=== PATIENT | female | born 1965 | race Caucasian/White ===

== ENCOUNTER 2018-08-26 10:46 | Outpatient (CLI) | payer BC ==
--- NOTE | 2018-08-26 15:25 | ULT ---
BILATERAL BREASTS LIMITED ULTRASOUND: 08/26/2018 HISTORY: Outside mammograms noting a 4 mm oval asymmetry in the right breast with a partially circumscribed ma ss, left breast, anterior to middle depth, in the central breast. FINDINGS: Limited sonographic evaluation of the right breast was performed. There is a small, anechoic structu res seen within the right breast, at the 10 o'clock position, measuring 4 mm, which demonstrates sono graphic characteristics most compatible with a small cyst. This is thought to correspond to the mamm ographic abnormality. There is a small, hypoechoic structure seen within the left breast, at the 6 o'clock position, which measures approximately 5 mm. The structure in the left breast, which is predominantly in a retroareo lar region, on the mammogram, measures approximately 8 to 9 mm. There is a discrepancy in size betwe en ultrasound and mammographic findings. The finding on the ultrasound may be related to a mildly co mplicated cyst. No additional mass or cystic lesion is seen in the left breast. There is an oval-shaped, isoechoic area seen in the left breast, at the 7 o'clock position, but on re al-time imaging, this had the appearance of breast parenchyma and was similar in echogenicity to the adjacent normal breast parenchyma. IMPRESSION: 1. BI-RADS category 3-Probably benign findings. Short interval six-month follow-up, unilateral left mammogram and ultrasound, recommended. A hypoechoic cystic structure, likely a complicated cyst , is seen in the left breast, retroareolar region, which measures slightly smaller in size than the a bnormality seen on outside mammograms. No additional lesions are seen on sonographic evaluation. Gi gianna discrepancy in size between mammogram and ultrasound, short interval follow-up unilateral left br east mammogram and ultrasound are recommended. 2. Small cyst right breast. POS: OFF
== END 2018-08-26 10:47 | disposition home or self-care (01) ==
LOC: BICULT 10:46
PROVIDERS: ATTEND Student in an Organized Health Care Education/Training Program
DX: N63.10 Unspecified lump in the right breast, unspecified quadrant (principal); N63.20 Unspecified lump in the left breast, unspecified quadrant; N60.01 Solitary cyst of right breast; N60.02 Solitary cyst of left breast

== ENCOUNTER 2019-02-01 16:25 | Outpatient (CLI) | payer BC ==
--- NOTE | 2019-02-01 17:02 | RAD ---
Exam: XR Hand Rt 3 View STANDARD HISTORY: Right hand pain COMPARISON: None FINDINGS: Tiny osseous density seen adjacent to the ulnar styloid process probably due to accessory center of o ssification versus a remote tiny avulsion injury. No acute fracture, dislocation, or other acute osseous abnormality is identified. IMPRESSION: No acute osseous abnormality is identified.
--- NOTE | 2019-02-01 17:03 | RAD ---
Exam: XR Wrist 3 Rt View STANDARD HISTORY: Right wrist and hand pain. COMPARISON: None FINDINGS: There is a tiny osseous density adjacent to the styloid process which does appear corticated and may represent either a tiny accessory center of ossification versus a remote avulsion injury. No acute fracture, dislocation, or other acute osseous abnormality is identified. IMPRESSION: No acute osseous abnormality is identified. If symptoms persist, follow-up imaging is advised in 4-7 days after conservative management for further evaluation and to exclude a radiographically occult fracture.
--- NOTE | 2019-02-01 17:04 | RAD ---
Exam: XR Hand Lt 3 View STANDARD HISTORY: Left hand and wrist pain. COMPARISON: None FINDINGS: No acute fracture, dislocation, or other acute osseous abnormality is identified. IMPRESSION: No acute osseous abnormality is identified.
--- NOTE | 2019-02-01 17:05 | RAD ---
Exam: XR Wrist 3 Lt View STANDARD HISTORY: Left wrist pain COMPARISON: None FINDINGS: No acute fracture, dislocation, or other acute osseous abnormality is identified. IMPRESSION: No acute osseous abnormality is identified. If symptoms persist, follow-up imaging is advised.
== END 2019-02-01 16:26 | disposition home or self-care (01) ==
LOC: RAD 16:25
PROVIDERS: ATTEND Physician Assistant
DX: M25.531 Pain in right wrist (principal); M79.644 Pain in right finger(s); M25.641 Stiffness of right hand, not elsewhere classified; M25.532 Pain in left wrist; M79.645 Pain in left finger(s); M25.642 Stiffness of left hand, not elsewhere classified